=== PATIENT | male | born 1980 | race Caucasian/White ===

== ENCOUNTER 2020-12-01 13:06 | Emergency (ER) | payer OTHER | END 2020-12-01 17:54 | disposition home or self-care (01) | LOC: FER 13:06 | DX: U07.1 COVID-19 (principal); J12.82 Pneumonia due to coronavirus disease 2019 | CPT/HCPCS: 71045; U0002 ==

== ENCOUNTER 2020-12-08 19:01 | Inpatient (IN) | payer OTHER ==
[~2020-12-08] VITALS: Ht 172.7 cm; Wt 70.4 kg
[2020-12-08 20:43] LABS: BASOPHIL 0.4 % (0-2); EOSINOPHIL 0.9 % (0-5); HCT 42.7 % (42.0-52.0); HGB 14.7 g/dl (13.2-18.0); LYMPHOCYTE 39.4 % (15-48); MCH 30.8 pg (25.0-31.0); MCHC 34.4 g/dL (32.0-36.0); MCV 89.5 fL (78.0-100.0); MONOCYTE 19.9 % (0-12); MPV 9.3 fL (6.0-9.5); NEUTROPHIL 38.5 % (41-80); NRBC 0; RBC 4.77 M/uL (4.70-6.00); WBC 2.3 K/uL (4.0-10.5)
[2020-12-08 21:03] LABS: PLT 94 K/uL (150-400)
[2020-12-08 21:06] LABS: ALBUMIN 2.5 g/dL (3.4-5.0); BILIRUBIN - TOTAL 0.6 mg/dL (0.2-1.0); BUN/CREAT RATIO (CALC) 16.3 RATIO; C-REACTIVE PROTEIN 7.3 mg/dL (<=0.90); CREATININE 1.23 mg/dL (0.67-1.17); GLOBULIN (CALCULATION) 4.4 g/dL; POTASSIUM 3.9 mmol/L (3.5-5.1); TOTAL PROTEIN 6.9 g/dL (6.4-8.2)
[2020-12-08 23:52] LABS: CORONAVIRUS 2019 SARS-COV-2 POSITIVE (NEGATIVE); INFLUENZA A NAA NEGATIVE (NEGATIVE)
[2020-12-09 06:26] LABS: BASOPHIL 0.7 % (0-2); EOSINOPHIL 0 % (0-5); HCT 42.2 % (42.0-52.0); HGB 14.3 g/dl (13.2-18.0); LYMPHOCYTE 25.9 % (15-48); MCH 30.8 pg (25.0-31.0); MCHC 33.9 g/dL (32.0-36.0); MCV 90.9 fL (78.0-100.0); MONOCYTE 9.6 % (0-12); MPV 9.4 fL (6.0-9.5); NEUTROPHIL 63.1 % (41-80); NRBC 0; PLT 100 K/uL (150-400); RBC 4.64 M/uL (4.70-6.00)
[2020-12-09 06:29] LABS: WBC 1.4 K/uL (4.0-10.5)
[2020-12-09 07:08] LABS: ALBUMIN 2.3 g/dL (3.4-5.0); BILIRUBIN - TOTAL 0.4 mg/dL (0.2-1.0); BUN/CREAT RATIO (CALC) 15.2 RATIO; C-REACTIVE PROTEIN 7.3 mg/dL (<=0.90); CREATININE 0.99 mg/dL (0.67-1.17); MAGNESIUM 1.9 mg/dL (1.8-2.4); PHOSPHORUS 1.9 mg/dL (2.6-4.7); POTASSIUM 4.3 mmol/L (3.5-5.1); TOTAL PROTEIN 6.3 g/dL (6.4-8.2)
[2020-12-09 10:16] LABS: LACTIC ACID 5.1 mmol/L (0.4-1.9)
[2020-12-10 06:01] LABS: BASOPHIL 0.2 % (0-2); EOSINOPHIL 0 % (0-5); HCT 41.9 % (42.0-52.0); HGB 14.2 g/dl (13.2-18.0); LYMPHOCYTE 19.5 % (15-48); MCH 30.6 pg (25.0-31.0); MCHC 33.9 g/dL (32.0-36.0); MCV 90.3 fL (78.0-100.0); MONOCYTE 19.8 % (0-12); MPV 9.3 fL (6.0-9.5); NEUTROPHIL 59.8 % (41-80); NRBC 0; PLT 127 K/uL (150-400); RBC 4.64 M/uL (4.70-6.00); RDW 12.2 % (11.5-14.0)
[2020-12-10 06:02] LABS: WBC 4.2 K/uL (4.0-10.5)
[2020-12-10 06:28] LABS: ALBUMIN 2.4 g/dL (3.4-5.0); BILIRUBIN - TOTAL 0.4 mg/dL (0.2-1.0); CREATININE 0.93 mg/dL (0.67-1.17); GLOBULIN (CALCULATION) 4.4 g/dL; MAGNESIUM 2.1 mg/dL (1.8-2.4); PHOSPHORUS 2.7 mg/dL (2.6-4.7); TOTAL PROTEIN 6.8 g/dL (6.4-8.2)
[2020-12-10 09:39] LABS: LACTIC ACID 2.9 mmol/L (0.4-1.9)
[2020-12-11 07:10] LABS: BASOPHIL 0.2 % (0-2); EOSINOPHIL 0 % (0-5); HCT 43.9 % (42.0-52.0); HGB 15.1 g/dl (13.2-18.0); LYMPHOCYTE 25.3 % (15-48); MCH 30.7 pg (25.0-31.0); MCHC 34.4 g/dL (32.0-36.0); MCV 89.2 fL (78.0-100.0); MONOCYTE 18.5 % (0-12); MPV 8.8 fL (6.0-9.5); NEUTROPHIL 54.9 % (41-80); NRBC 0; PLT 147 K/uL (150-400); RBC 4.92 M/uL (4.70-6.00); RDW 11.9 % (11.5-14.0); WBC 4.7 K/uL (4.0-10.5)
[2020-12-11 07:43] LABS: ALBUMIN 2.7 g/dL (3.4-5.0); BILIRUBIN - TOTAL 0.5 mg/dL (0.2-1.0); BUN/CREAT RATIO (CALC) 15.2 RATIO; CREATININE 0.99 mg/dL (0.67-1.17); GLOBULIN (CALCULATION) 4.5 g/dL; POTASSIUM 4.3 mmol/L (3.5-5.1); TOTAL PROTEIN 7.2 g/dL (6.4-8.2)
[2020-12-12 06:46] LABS: BASOPHIL 0.4 % (0-2); EOSINOPHIL 0.2 % (0-5); HCT 40.7 % (42.0-52.0); HGB 13.9 g/dl (13.2-18.0); LYMPHOCYTE 27.5 % (15-48); MCH 30.6 pg (25.0-31.0); MCHC 34.2 g/dL (32.0-36.0); MCV 89.6 fL (78.0-100.0); NEUTROPHIL 51.8 % (41-80); NRBC 0; PLT 146 K/uL (150-400); RBC 4.54 M/uL (4.70-6.00); RDW 11.9 % (11.5-14.0); WBC 4.6 K/uL (4.0-10.5)
[2020-12-12 07:01] LABS: ALBUMIN 2.6 g/dL (3.4-5.0); BILIRUBIN - TOTAL 0.5 mg/dL (0.2-1.0); BUN/CREAT RATIO (CALC) 17.9 RATIO; CREATININE 0.95 mg/dL (0.67-1.17); GLOBULIN (CALCULATION) 3.5 g/dL; POTASSIUM 3.9 mmol/L (3.5-5.1); TOTAL PROTEIN 6.1 g/dL (6.4-8.2)
--- NOTE | 2020-12-12 16:26 | NUR ---
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 CURRENTLY HE IS ON 6 L NC SAT AT 98%. GEN STATED THAT PT MAY BE LESS BY TUESDAY. ADVISED DESIRAE PRAKASH THAT PT. MAY REQUIRE HOME O2 BEFORE DC. BUT IT IS UNCLEAR WHAT LITER HE MAY NEED AND THAT SOMEONE WILL NEED TO ORDER HIS O2 BEFORE HE DISCHARGES HOME.
[2020-12-13] MEDS ORDERED: DEXAMETHASONE 2M2 MG PO (11:31)
== END 2020-12-14 09:00 | disposition home or self-care (01) | DRG 871 ==
LOC: FER 19:01 → FMS 22:54 → FTCU 22:54 → FMS 12-13 22:28
PROVIDERS: Emergency Medicine Emergency Medical Services; Family Medicine; Nurse Practitioner; ADMIT Allergy & Immunology Allergy
PROC: 8E0ZXY6 Isolation (ICD-10-PCS; principal; 2020-12-08)
PROC: XW033E5 Introduction of Remdesivir Anti-infective into Peripheral Vein, Percutaneous Approach, New Technology Group 5 (ICD-10-PCS; 2020-12-08)
PROC: XW0DXM6 Introduction of Baricitinib into Mouth and Pharynx, External Approach, New Technology Group 6 (ICD-10-PCS; 2020-12-08)
PROC: 5A0955A Assistance with Respiratory Ventilation, Greater than 96 Consecutive Hours, High Flow/Velocity Cannula (ICD-10-PCS; 2020-12-08)
DX: A41.89 Other specified sepsis (principal); U07.1 COVID-19; J12.82 Pneumonia due to coronavirus disease 2019; J96.01 Acute respiratory failure with hypoxia; R65.20 Severe sepsis without septic shock; R73.9 Hyperglycemia, unspecified; E86.0 Dehydration; Z98.890 Other specified postprocedural states; Z90.49 Acquired absence of other specified parts of digestive tract; Z90.89 Acquired absence of other organs; Z83.3 Family history of diabetes mellitus; Z82.49 Family history of ischemic heart disease and other diseases of the circulatory system
CPT/HCPCS: 36415; 36600; 71045; 71275; 80053; 82728; 82803; 83036; 83605; 83615; 83735; 84100; 84145; 84484; 85025; 85379; 86140; 87040; 93005; 94010; 94640; 94664; 94760; 94762; C9399; J1100; J1650; J1885; J2405; J7030; J7050; J8540; Q9967; U0002